=== PATIENT | female | born 1985 | race Caucasian/White ===

== ENCOUNTER 2023-06-12 18:06 | Emergency (ER) | payer BC, SELFPAY ==
--- NOTE | ~2023-06-12 | XR_ITS ---
EXAM: XR elbow RT min 3V, XR forearm RT 2V DATE: 06/12/2023 19:40 HISTORY: twisting injury, pain . COMPARISON: None available. FINDINGS: Normal mineralization. Acute appearing, minimally displaced coronoid process fracture. No lytic or blastic lesion. Joint spaces are maintained. No erosion or periosteal change. Mild displacem ent of the anterior fat pad. IMPRESSION: Acute appearing, minimally displaced coronoid process fracture. Small right elbow joint e ffusion. Reviewed, dictated and finalized at location [facility]. IMPRESSION: Acute appearing, minimally displaced coronoid process fracture. Sma ll right elbow joint effusion.
[2023-06-12 18:09] VITALS: BP 100/65; PULSE 87; RESP 17; TEMP 36.6; O2SAT 100
--- NOTE | 2023-06-12 18:27 | ED.UPPEXIN ---
HPI - Extremity Injury (Upper) General Chief Complaint: Extremity Injury, Upper Stated Complaint: ARM INJURY S/P AUGAR USE Time Seen by Provider: 06/12/23 18:27 Source: patient and family Mode of arrival: ambulatory Limitations: no limitations History of Present Illness HPI narrative: patient is a 37-year-old female presents emergency department today ambulatory with a steady gait by private vehicle with mother for evaluation of pain to the right elbow. patient was at home helping her mother build a fence and she was using an augar device when it was very hard. she tried to push down hard and then it spinned her around and her right elbow popped/cracked and she has been having significant pain since. states her entire arm feels numb. denies any other injury. denies pain to the right upper arm/shoulder/wrist/hand. it is all in the elbow and forearm. Related Data Allergies Allergy/AdvReac Type Severity Reaction Status Date / Time No Known Allergies Allergy Verified 06/12/23 19:09 Review of Systems Review of Systems: CONSTITUTIONAL: Denies fever, chills, or sweats. EYES: Denies visual changes, redness, or discharge. ENT: Denies rhinorrhea, congestion, sore throat, or otalgia. CARDIOVASCULAR: Denies chest pain, palpitations, or edema. RESPIRATORY: Denies cough or dyspnea. GASTROINTESTINAL: Denies abdominal pain, nausea, vomiting, or diarrhea. GENITOURINARY: Denies dysuria or hematuria. SKIN: Denies rash or itching. MUSCULOSKELETAL: +right elbow pain and decreased ROM. Denies back pain. NEUROLOGIC: Denies headache, numbness, or weakness. PSYCHIATRIC: Denies anxiety or depression. All systems reviewed & are unremarkable except as noted in HPI and below Exam Narrative: GENERAL: Well-appearing, well-nourished. crying and moaning out in pain. acute distress noted due to pain. HEAD: Normocephalic, atraumatic. EYES: PERRLA and EOMI. ENT: Nares clear, no rhinorrhea or epistaxis. Mucous membranes moist. NECK: Supple. CHEST: Clear to auscultation. No respiratory distress. HEART: Regular rate. 2+ radial pulse to the right. EXTREMITIES: decreased ROM to right elbow with significant pain with any touching. mild swelling to olecranon aspect. mild elbow effusion. no tenderness to right humerus/shoulder/wrist/hand. there is mild pain over the forearm aspect of the arm. There is no warmth/redness to the right elbow. SKIN: Warm, dry, no rash. NEURO: No focal deficits. Alert and oriented x3. CN II-XII grossly intact.distal NV intact to RUE. PSYCH: anxious and tearful. Course Vital Signs Vital signs: Vital Signs Temperature 97.8 F 06/12/23 18:09 Pulse Rate 87 06/12/23 18:09 Respiratory Rate 17 06/12/23 18:09 Blood Pressure 100/65 06/12/23 18:09 Pulse Oximetry 100 06/12/23 18:09 Oxygen Delivery Room Air 06/12/23 18:09 Temperature 97.8 F 06/12/23 18:09 Pulse Rate 85 06/12/23 20:53 Respiratory Rate 14 06/12/23 20:53 Blood Pressure 90/56 L 06/12/23 20:53 Pulse Oximetry 100 06/12/23 20:53 Oxygen Delivery Room Air 06/12/23 20:39 Oxygen Flow Rate 2 06/12/23 19:58 MDM - Extremity Injury (Upper) MDM Narrative Medical decision making narrative: presents for right elbow pain after injury. will obtain x-ray, medicate, ice and re-eval. assessment reveals strong distal pulses and distal NV intact. x-ray notes a minimally displaced fracture of the great proximal ulna. Patient was put in Tyrell wrap with sling. She will follow-up with orthopedics. Distal neurovascular status is intact. She was given pain medication as well as antianxiety medication while here as she was in pain and very anxious. This did help her calm down significantly. Her blood pressure was little bit soft prior to discharge however she will not be driving and her mother is driving her home and is likely due to medications. Encourage patient to go home and drink plenty of fluids. Patient is nontoxic in appearance. Stable
[2023-06-12] MEDS: HYDROcodone/acetaminophen (*CRX) 10-325 MG TABLET 1 TAB PO (19:10)
[2023-06-12] MEDS: KETOROLAC 30 MG/ML VIAL (*BKC) IV PUSH (19:11)
[2023-06-12] MEDS: LORazepam INJ (*CRX) 2 MG/ML VIAL 1 MG IV PUSH (19:13)
[2023-06-12 19:22] VITALS: PULSE 85; RESP 26; O2SAT 100
[2023-06-12 19:57] VITALS: O2SAT 86
[2023-06-12 19:58] VITALS: O2SAT 100
[2023-06-12 20:39] VITALS: O2SAT 98
[2023-06-12 20:53] VITALS: BP 90/56; PULSE 85; RESP 14; O2SAT 100
== END 2023-06-12 20:48 | disposition home or self-care (01) ==
PROVIDERS: Emergency Provider Nurse Practitioner; PCP Internal Medicine Geriatric Medicine
DX: S52.041A Displaced fracture of coronoid process of right ulna, initial encounter for closed fracture (principal); W31.0XXA Contact with mining and earth-drilling machinery, initial encounter
CPT/HCPCS: 73080; 73090; 96374; 96375; 99284; A4565; A9270; J1885; J2060

== ENCOUNTER 2023-08-22 11:33 | Emergency (ER) | payer BC, SELFPAY ==
[2023-08-22 11:48] VITALS: BP 104/73; PULSE 75; RESP 16; TEMP 36.8; O2SAT 100
--- NOTE | 2023-08-22 12:26 | ED.GENADULT ---
HPI - General Adult General Chief complaint: Wound/Laceration Stated complaint: L THUMB LACERATION Source: patient Mode of arrival: ambulatory Limitations: no limitations History of Present Illness HPI narrative: Patient presents for evaluation laceration the left that occurred just [employer]. 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 She reports mild pain in the affected area. No loss of range of motion. No paresthesias. Bleeding controlled. She is right-hand dominant. Date of last tetanus approximately 2 years ago. She is not diabetic. Related Data Home Medications Medication Instructions Recorded Confirmed spironolactone 50 mg tablet mg 08/22/23 Allergies Allergy/AdvReac Type Severity Reaction Status Date / Time No Known Allergies Allergy Verified 08/22/23 11:47 Review of Systems Review of Systems: CONSTITUTIONAL: Denies fever, chills, or sweats. EYES: Denies visual changes, redness, or discharge. ENT: Denies rhinorrhea, congestion, sore throat, or otalgia. CARDIOVASCULAR: Denies chest pain, palpitations, or edema. RESPIRATORY: Denies cough or dyspnea. GASTROINTESTINAL: Denies abdominal pain, nausea, vomiting, or diarrhea. GENITOURINARY: Denies dysuria or hematuria. SKIN: Reports laceration to the left thumb. Denies rash or itching. MUSCULOSKELETAL: Denies back pain, joint pain, or myalgia. NEUROLOGIC: Denies headache, numbness, dizziness, or weakness. PSYCHIATRIC: Denies anxiety or depression. [facility] Past Medical History Medical History No pertinent past medical history Surgical History Surgical History No pertinent past surgical history Family History Family History Mother Family history non-contributory Social History Social History Substance use: never Living arrangements: with family Gender identity (if verbalized by the patient): Female Sexual Orientation (if Verbalized by the Patient): Lesbian, Jim, or Homosexual Spiritual care concerns: No Exam Narrative: GENERAL: Well-appearing, well-nourished, and in no acute distress. HEAD: Normocephalic, atraumatic. EYES: PERRLA and EOMI. ENT: Nares clear, no rhinorrhea or epistaxis. Mucous membranes moist. Oropharynx without tonsillar hypertrophy exudate or other lesions. Bilateral TMs pearly carter nonbulging NECK: Supple. No adenopathy or masses. No carotid bruits or JVD CHEST: Clear to auscultation. No respiratory distress. No wheezes rales or rhonchi HEART: Regular rate and rhythm. No murmur heard. Normal peripheral pulses. ABDOMEN: Soft, nontender, nondistended, normal active bowel sounds. EXTREMITIES: Normal range of motion. No edema. SKIN: Approximately 1.2 cm linear laceration to the dorsal aspect of the proximal phalanx of the left thumb. NEURO: No focal deficits. Alert and oriented x3. PSYCH: Normal mood and affect. Course Course Emergency Course: This is a 38-year-old female who presented for evaluation of a left thumb laceration. Wound was irrigated and laceration closed with 2 sutures. Tolerated well. Advised on wound care. Wash affected area 3 times daily with antibacterial soap and water and apply triple antibiotic ointment thereafter. Follow-up with primary provider in the next week to 10 days for suture removal. Go to the ER for evidence of infection. Provided with thumb splint. patient in agreement plan of care. Level of Care: Express Care Visit Vital Signs Vital signs: Vital Signs Temperature 36.8 C 08/22/23 11:48 Pulse Rate 75 08/22/23 11:48 Respiratory Rate 16 08/22/23 11:48 Blood Pressure 104/73 08/22/23 11:48 Pulse Oximetry 100 08/22/23 11:48 Oxygen Delivery Room Air
== END 2023-08-22 13:15 | disposition home or self-care (01) ==
PROVIDERS: Emergency Provider Nurse Practitioner; PCP Internal Medicine Geriatric Medicine
DX: S61.012A Laceration without foreign body of left thumb without damage to nail, initial encounter (principal); W45.8XXA Other foreign body or object entering through skin, initial encounter
CPT/HCPCS: 12001; 99212; G0463